=== PATIENT | female | born 1980 | race Two or more races ===

== ENCOUNTER 2018-08-05 08:46 | Emergency (ER) | payer MEDICAID ==
[~2018-08-05] VITALS: Ht 157.5 cm; Wt 78.0 kg
[2018-08-05] MEDS ORDERED: KETOROLAC 30MG/ML VIAL IM ONE (10:30)
[2018-08-05] MEDS ORDERED: DIAZEPAM 5 MG TABLET PO ONE (10:30)
[2018-08-05 15:08] VITALS: BP 118/74
== END 2018-08-05 15:30 | disposition home or self-care (01) ==
LOC: ER 08:46
DX: S80.11XA Contusion of right lower leg, initial encounter (principal); E11.9 Type 2 diabetes mellitus without complications; V49.49XA Driver injured in collision with other motor vehicles in traffic accident, initial encounter; Y93.89 Activity, other specified; Y92.89 Other specified places as the place of occurrence of the external cause; Y99.8 Other external cause status
CPT/HCPCS: 72070; 72220; 73030; 73502; 73562; 73610; 81025; 96372; 99283; J1885

== ENCOUNTER 2022-09-12 10:48 | Emergency (ER) | payer MEDICAID ==
[~2022-09-12] VITALS: Ht 157.5 cm; Wt 81.0 kg
[2022-09-12] MEDS ORDERED: KETOROLAC 30MG/ML VIAL IM ONE (13:45)
[2022-09-12] MEDS ORDERED: HYDROCODONE/ACETAMINOPHEN 5/325MG TABLET PO ONE (13:45)
[2022-09-12] MEDS ORDERED: LIDOCAINE 5% PATCH TOP SCH (13:45)
[2022-09-12 14:37] LABS: BASOPHILS % 0.9 % (0.0-2.0); CHLORIDE 112 mEq/L (98-107); EOSINOPHILS % 3.6 % (0.0-5.0); HEMATOCRIT. 31.2 % (36.0-48.0); HEMOGLOBIN. 10.5 g/dL (12.0-16.0); LYMPHOCYTES % 30.7 % (20.0-50.0); MEAN CORPUSCULAR HEMOGLOBIN 28.8 pg (28.0-32.0); MEAN CORPUSCULAR VOLUME 85.3 fL (81.0-99.0); MEAN PLATELET VOLUME 8.8 fl (7.4-10.4); MONOCYTES % 3.8 % (2.0-8.0); PLATELET 455 x1000/uL (130-400); RED BLOOD CELL COUNT 3.66 mill/uL (4.2-5.4); RED CELL DISTRIBUTION WIDTH 14.5 % (11.6-14.6)
[2022-09-12] MEDS ORDERED: IOHEXOL-300 100 ML BOTTLE ONE (15:26)
[2022-09-12] MEDS ORDERED: ACET-2708 MT (16:04)
[2022-09-12] MEDS ORDERED: NAPR500T7 MT (16:04)
[2022-09-12] MEDS ORDERED: CYCL5TAB MT (16:04)
[2022-09-12] MEDS ORDERED: LIDO700A30 TP (16:11)
[2022-09-12] MEDS ORDERED: FERR324T4 MT (16:11)
[2022-09-12 16:57] VITALS: BP 137/88
== END 2022-09-12 16:58 | disposition home or self-care (01) ==
LOC: ER 11:02
DX: S39.012A Strain of muscle, fascia and tendon of lower back, initial encounter (principal); S16.1XXA Strain of muscle, fascia and tendon at neck level, initial encounter; E78.00 Pure hypercholesterolemia, unspecified; E11.9 Type 2 diabetes mellitus without complications; I10 Essential (primary) hypertension; N93.9 Abnormal uterine and vaginal bleeding, unspecified; D64.9 Anemia, unspecified; Z98.890 Other specified postprocedural states; V49.9XXA Car occupant (driver) (passenger) injured in unspecified traffic accident, initial encounter; Y93.89 Activity, other specified; Y92.89 Other specified places as the place of occurrence of the external cause; Y99.8 Other external cause status
CPT/HCPCS: 36415; 70450; 72125; 73030; 74177; 80053; 81025; 85025; 96372; 99285; J1885; Q9967; Z7610